=== PATIENT | male | born 1945 | race Caucasian/White ===

== ENCOUNTER → 2017-04-11 | Outpatient (CLI) | payer BC ==
[~2017-04-11] MED LIST: ASPEC81 PO; CALCTAB5 PO; LOVA20TA4 PO; MULT-506 PO; NSP500 PO
--- NOTE | 2017-04-11 12:53 | DIAGNOSTIC IMAGING REPORT ---
TWO VIEW CHEST CLINICAL HISTORY: Cough. FINDINGS: PA and lateral chest radiographs are obtained. No prior studies are available for comparison at the time of dictation. The cardiomediastinal silhouette is unremarkable. There is mild atherosclerotic calcification of the thoracic aorta. There are changes of emphysema with nonspecific interstitial thickening. No airspace consolidation or pleural effusion is identified. Mild apical scarring is observed. There is no pneumothorax. The bony thorax appears intact. IMPRESSION: 1. Emphysema with no active disease in the chest. 2. No concerning pulmonary lesion is seen by x-ray. Note that x-rays is insensitive in screening for lung cancer. If there is clinical concern for neoplasm then a chest CT should be considered. Electronically signed by: Osorio Ace M.D. 04/11/2017 12:52 PM Dictated Date/Time: 04/11/2017 12:51 PM
== END | disposition home or self-care (01) ==
LOC: C.RAD1850 12:16
PROVIDERS: ATTEND Family Medicine
DX: R05 Cough (principal); Z87.891 Personal history of nicotine dependence